=== PATIENT | female | born 1935 ===

== ENCOUNTER 2016-06-22 15:51 | Inpatient (IN) | payer MEDICARE, MEDICAID ==
[~2016-06-22] VITALS: Ht 152.4 cm; Wt 37.6 kg
--- NOTE | 2016-06-22 16:03 | NUR ---
[facility] CALLED, IVONNE TORRES WILL BE COMING TO EVAL PT.
[2016-06-22] MEDS ORDERED: GLIM2TAB2 PO (16:04)
[2016-06-22] MEDS ORDERED: BRIM5DRO3 OP (16:04)
[2016-06-22] MEDS ORDERED: BIMA2.5D5 OP (16:04)
[2016-06-22] MEDS ORDERED: AMYL1CAP56 PO (16:04)
[2016-06-22] MEDS ORDERED: TRIA0.252 PO (16:04)
[2016-06-22] MEDS ORDERED: TIMO1DRO2 OP (16:04)
[2016-06-22] MEDS ORDERED: LOSA100T3 PO (16:04)
[2016-06-22] MEDS ORDERED: ASPI81TA31 PO (16:04)
--- NOTE | 2016-06-22 16:27 | NUR ---
FAMILY AT THE BEDSIDE, PT RESTING W/ BOTH EYES CLOSED.
--- NOTE | 2016-06-22 16:52 | NUR ---
IVONNE TORRES FROM [facility] AT THE BEDSIDE FOR PSYCH EVAL. FAMILY PROVIDING INFO.
[2016-06-22 18:00] VITALS: BP 160/89
[2016-06-22] MEDS ORDERED: MAGNESIUM HYDROXIDE 30 ML LIQUID UDC PO PRN (18:00)
[2016-06-22] MEDS ORDERED: ACETAMINOPHEN 325 MG TABLET PO PRN (18:00)
[2016-06-22] MEDS ORDERED: LORAZEPAM 0.5 MG TABLET PO PRN (18:00)
[2016-06-22] MEDS ORDERED: MAG HYDROX/AL HYDROX/SIMETH 30 ML LIQUID UDC PO PRN (18:00)
--- NOTE | 2016-06-22 19:21 | NUR ---
1730 ADMIT TO [facility], PLACED ON 5150 FOR DTS AND GRAVELY DISABLED. PATIENT INGESTED NAILPOLISHED. PATIENT ALERT AND OX2, SPEAK VIETAMISE AND LITTLE YI. PATIENT CALM AND COOPERATIVE. RESPIRATION EVEN AND UNLABORED. DENIES PAIN. ADMISSION CARE DONE. DR. GODOY AND [facility] DOCTOR NOTIFIED TO RECONCILE MEDICATIONS.
[2016-06-22 19:45] VITALS: BP 124/70
[2016-06-22] MEDS: TEMAZEPAM 7.5 MG CAPSULE PO PRN (20:09)
[2016-06-23 07:06] LABS: BASOPHILS % (AUTO) 0.4 % (0.0-2.0); EOSINOPHILS # (AUTO) 0.2 K/uL (0.0-0.7); EOSINOPHILS % (AUTO) 1.8 % (0.0-7.0); HEMATOCRIT 34.9 % (37.0-47.0); HEMOGLOBIN 11.6 g/dL (12.0-16.0); LYMPHOCYTES # (AUTO) 2.9 K/uL (0.8-4.8); LYMPHOCYTES % (AUTO) 27.9 % (20.5-51.5); MEAN CORPUSCULAR HEMOGLOBIN 31.1 uug (27.0-31.0); MEAN CORPUSCULAR HGB CONC 33 g/dL (32.0-37.0); MEAN CORPUSCULAR VOLUME 93.4 fL (81.0-99.0); MONOCYTES # (AUTO) 0.6 K/uL (0.1-1.30); MONOCYTES % (AUTO) 6.2 % (0.0-11.0); NEUTROPHILS # (AUTO) 6.7 K/uL (1.8-8.9); NEUTROPHILS % (AUTO) 63.7 % (38.5-71.5); PLATELET COUNT (AUTO) 520 K/uL (150-450); RED BLOOD CELL COUNT(AUTO) 3.73 MIL/uL (4.20-5.40); RED CELL DISTRIBUTION WIDTH 14.1 % (11.5-14.5); WHITE BLOOD COUNT (AUTO) 10.4 K/uL (4.0-11.2)
[2016-06-23 07:30] VITALS: BP 124/64
[2016-06-23 07:33] LABS: ALBUMIN 3.6 g/dL (3.4-5.0); BILIRUBIN,TOTAL 0.5 mg/dL (0.2-1.0); CALCIUM 9.6 mg/dL (8.5-10.1); CREATININE 1.1 mg/dL (0.6-1.3); MAGNESIUM 2.1 mg/dL (1.8-2.4); POTASSIUM 4.2 mmol/L (3.5-5.1); TOTAL PROTEIN, SERUM 7.3 g/dL (6.4-8.2)
[2016-06-23 07:35] LABS: THYROID STIMULATING HORMONE 2.369 mIU/mL (0.358-3.740)
[2016-06-23] MEDS: LIPASE/PROTEASE/AMYLASE 1 CAP CAPSULE.DR PO SCH ×2 (08:48→17:52)
[2016-06-23] MEDS: GLIMEPIRIDE 2 MG TABLET PO SCH ×2 (08:49→17:52)
[2016-06-23] MEDS: ASPIRIN 81 MG TAB.CHEW PO SCH (08:49)
[2016-06-23] MEDS: LOSARTAN POTASSIUM 50 MG TABLET PO SCH (08:52)
[2016-06-23] MEDS ORDERED: [UNRECOGNIZED DRUG - OTHER] OP SCH (09:00)
[2016-06-23] MEDS ORDERED: BRIMONIDINE-P 0.1% OPHTH DROP 5 ML DROPS OP SCH (09:00)
[2016-06-23] MEDS ORDERED: TIMOLOL OP SCH (09:00)
[2016-06-23] MEDS ORDERED: BIMATOPROST 0.01% OPHT DROP 2.5 ML BOTTLE OP SCH (09:00)
[2016-06-23] MEDS: TIMOLOL MALEATE 0.5% OPHT DROP 5 ML BOTTLE EACHEYE SCH (11:04)
[2016-06-23] MEDS: BRIMONIDINE-P 0.1% OPHTH DROP 5 ML DROPS EACHEYE SCH (11:05)
--- NOTE | 2016-06-23 14:09 | NUR ---
Initial discharge instructions:Patient resides at home with her son and his family[[id number],[address];([phone]].Per family,they would like the pt to be placed at a SNF for shor-term.SW will speak with pt,family,and MD regarding appropriate discharge plans.SW will form a safe and proper discharge.
[2016-06-23 16:00] VITALS: BP 121/72
[2016-06-23] MEDS: MIRTAZAPINE 15 MG TABLET PO SCH (20:44)
[2016-06-23] MEDS: ARIPIPRAZOLE 5 MG TABLET PO SCH (20:44)
[2016-06-23] MEDS: LATANOPROST OPHT DROP 2.5 ML BOTTLE EACHEYE SCH (20:54)
[2016-06-23 21:13] VITALS: BP 119/61
--- NOTE | 2016-06-23 22:00 | NUR ---
received to care, up in troy chair, pleasant, but anxious, upon approach. compliant with medications, and staff direction. assisted to bed. as of 2200, she remains awake. no distress noted, will continue to monitor closely.
[2016-06-23] MEDS: TEMAZEPAM 7.5 MG CAPSULE PO PRN (22:51)
--- NOTE | 2016-06-23 22:51 | NUR ---
PRN restoril given for insomnia
--- NOTE | 2016-06-23 23:30 | NUR ---
appears to be asleep. no distress noted.
[2016-06-24] MEDS: CLONAZEPAM 0.5 MG TABLET PO PRN (01:42)
--- NOTE | 2016-06-24 01:42 | NUR ---
PRN klonopin given for anxiety.
--- NOTE | 2016-06-24 06:00 | NUR ---
slept 3 hours
[2016-06-24 08:00] VITALS: BP 123/55
[2016-06-24] MEDS: ASPIRIN 81 MG TAB.CHEW PO SCH (08:25)
[2016-06-24] MEDS: GLIMEPIRIDE 2 MG TABLET PO SCH ×2 (08:25→17:36)
[2016-06-24] MEDS: LIPASE/PROTEASE/AMYLASE 1 CAP CAPSULE.DR PO SCH ×2 (08:25→17:36)
[2016-06-24] MEDS: LOSARTAN POTASSIUM 50 MG TABLET PO SCH (08:26)
[2016-06-24] MEDS: TIMOLOL MALEATE 0.5% OPHT DROP 5 ML BOTTLE EACHEYE SCH (08:27)
[2016-06-24] MEDS: BRIMONIDINE-P 0.1% OPHTH DROP 5 ML DROPS EACHEYE SCH (08:27)
[2016-06-24 16:00] VITALS: BP 104/55
--- NOTE | 2016-06-24 16:40 | NUR ---
GPS/RN- Dunn catheter discontinue continue to monitor patient.
[2016-06-24] MEDS: ARIPIPRAZOLE 5 MG TABLET PO SCH (20:01)
[2016-06-24] MEDS: LATANOPROST OPHT DROP 2.5 ML BOTTLE EACHEYE SCH (20:01)
[2016-06-24] MEDS: MIRTAZAPINE 15 MG TABLET PO SCH (20:01)
[2016-06-24 20:08] VITALS: BP 117/71
[2016-06-25] MEDS: TEMAZEPAM 7.5 MG CAPSULE PO PRN ×2 (00:05→22:36)
--- NOTE | 2016-06-25 00:06 | NUR ---
GPS: PATIENT C/O INSOMNIA. RESTORIL 7.5 MG PO GIVEN.
--- NOTE | 2016-06-25 06:52 | NUR ---
GPS: REMAIN CALM AND COOPERATIVE. SLEPT 4 HRS AFTER GIVEN SLEEPING MEDS.SHOWERED THIS MORNING. CONTINUE MONITORING FOR SAFETY.
[2016-06-25 07:30] VITALS: BP 102/65
[2016-06-25] MEDS: LIPASE/PROTEASE/AMYLASE 1 CAP CAPSULE.DR PO SCH ×2 (08:24→17:18)
[2016-06-25] MEDS: TIMOLOL MALEATE 0.5% OPHT DROP 5 ML BOTTLE EACHEYE SCH (08:24)
[2016-06-25] MEDS: GLIMEPIRIDE 2 MG TABLET PO SCH ×2 (08:24→17:18)
[2016-06-25] MEDS: BRIMONIDINE-P 0.1% OPHTH DROP 5 ML DROPS EACHEYE SCH (08:24)
[2016-06-25] MEDS: ASPIRIN 81 MG TAB.CHEW PO SCH (08:24)
[2016-06-25] MEDS: LOSARTAN POTASSIUM 50 MG TABLET PO SCH (08:25)
[2016-06-25 16:00] VITALS: BP 111/60
[2016-06-25 20:00] VITALS: BP 112/68
[2016-06-25] MEDS: ARIPIPRAZOLE 5 MG TABLET PO SCH (20:52)
[2016-06-25] MEDS: MIRTAZAPINE 15 MG TABLET PO SCH (20:52)
[2016-06-25] MEDS: LATANOPROST OPHT DROP 2.5 ML BOTTLE EACHEYE SCH (20:57)
--- NOTE | 2016-06-25 22:36 | NUR ---
GPS: PATIENT C/O INSOMNIA. RESTORIL 7.5 MG PO GIVEN PER PATIENT REQUEST.
--- NOTE | 2016-06-25 23:36 | NUR ---
GPS: PATIENT SLEEPING EYE CLOSE. PRN EFFECTIVE FOR SLEEP.
--- NOTE | 2016-06-26 06:50 | NUR ---
GPS: REMAIN CALM AND COOPERATIVE WITH MEDS AND CARE. SLEPT 5 HRS AFTER GIVEN SLEEPING MEDS. ASSISTED WITH ADL'S. NO AGITATION NOTED. CONTINUE PLAN OF CARE.
[2016-06-26 07:30] VITALS: BP 102/72
[2016-06-26] MEDS: BRIMONIDINE-P 0.1% OPHTH DROP 5 ML DROPS EACHEYE SCH (08:53)
[2016-06-26] MEDS: GLIMEPIRIDE 2 MG TABLET PO SCH ×2 (08:53→17:17)
[2016-06-26] MEDS: LIPASE/PROTEASE/AMYLASE 1 CAP CAPSULE.DR PO SCH ×2 (08:53→17:17)
[2016-06-26] MEDS: LOSARTAN POTASSIUM 50 MG TABLET PO SCH (08:53)
[2016-06-26] MEDS: TIMOLOL MALEATE 0.5% OPHT DROP 5 ML BOTTLE EACHEYE SCH (08:53)
[2016-06-26] MEDS: ASPIRIN 81 MG TAB.CHEW PO SCH (08:53)
[2016-06-26 09:29] LABS: ALBUMIN 3.6 g/dL (3.4-5.0); BILIRUBIN,TOTAL 0.3 mg/dL (0.2-1.0); CALCIUM 9.3 mg/dL (8.5-10.1); CREATININE 0.9 mg/dL (0.6-1.3); POTASSIUM 3.9 mmol/L (3.5-5.1); TOTAL PROTEIN, SERUM 7.4 g/dL (6.4-8.2)
[2016-06-26 09:31] LABS: BASOPHILS # (AUTO) 0.1 K/uL (0.0-0.2); BASOPHILS % (AUTO) 0.6 % (0.0-2.0); EOSINOPHILS # (AUTO) 0.4 K/uL (0.0-0.7); EOSINOPHILS % (AUTO) 3.8 % (0.0-7.0); HEMATOCRIT 35.6 % (37.0-47.0); LYMPHOCYTES # (AUTO) 2.8 K/uL (0.8-4.8); LYMPHOCYTES % (AUTO) 25.3 % (20.5-51.5); MEAN CORPUSCULAR HEMOGLOBIN 31.1 uug (27.0-31.0); MEAN CORPUSCULAR HGB CONC 34 g/dL (32.0-37.0); MEAN CORPUSCULAR VOLUME 92.3 fL (81.0-99.0); MONOCYTES # (AUTO) 0.6 K/uL (0.1-1.30); MONOCYTES % (AUTO) 5.7 % (0.0-11.0); NEUTROPHILS # (AUTO) 7.2 K/uL (1.8-8.9); NEUTROPHILS % (AUTO) 64.6 % (38.5-71.5); PLATELET COUNT (AUTO) 471 K/uL (150-450); RED BLOOD CELL COUNT(AUTO) 3.85 MIL/uL (4.20-5.40); RED CELL DISTRIBUTION WIDTH 14.1 % (11.5-14.5); WHITE BLOOD COUNT (AUTO) 11.1 K/uL (4.0-11.2)
[2016-06-26 16:00] VITALS: BP 114/79
[2016-06-26] MEDS ORDERED: HYDROCORTISONE 2.5 % RECTAL CREAM 28.35 GM TUBE RC PRN (19:15)
[2016-06-26] MEDS: MIRTAZAPINE 15 MG TABLET PO SCH (20:20)
[2016-06-26] MEDS: ARIPIPRAZOLE 5 MG TABLET PO SCH (20:20)
[2016-06-26] MEDS: LATANOPROST OPHT DROP 2.5 ML BOTTLE EACHEYE SCH (20:21)
[2016-06-26 21:48] VITALS: BP 133/76
[2016-06-26] MEDS: TEMAZEPAM 7.5 MG CAPSULE PO PRN (22:29)
[2016-06-27 07:30] VITALS: BP 116/65
[2016-06-27] MEDS: LIPASE/PROTEASE/AMYLASE 1 CAP CAPSULE.DR PO SCH ×2 (08:34→17:04)
[2016-06-27] MEDS: ASPIRIN 81 MG TAB.CHEW PO SCH (08:34)
[2016-06-27] MEDS: GLIMEPIRIDE 2 MG TABLET PO SCH ×2 (08:34→17:04)
[2016-06-27] MEDS: LOSARTAN POTASSIUM 50 MG TABLET PO SCH (08:34)
[2016-06-27] MEDS: TIMOLOL MALEATE 0.5% OPHT DROP 5 ML BOTTLE EACHEYE SCH ×2 (08:35→16:27)
[2016-06-27] MEDS: BRIMONIDINE-P 0.1% OPHTH DROP 5 ML DROPS EACHEYE SCH ×2 (08:35→16:27)
[2016-06-27 15:22] VITALS: BP 104/50
[2016-06-27] MEDS: LATANOPROST OPHT DROP 2.5 ML BOTTLE EACHEYE SCH (20:02)
[2016-06-27] MEDS: MIRTAZAPINE 15 MG TABLET PO SCH (20:03)
[2016-06-27] MEDS: ARIPIPRAZOLE 5 MG TABLET PO SCH (20:03)
[2016-06-27] MEDS ORDERED: CYCL30DR OP (20:04)
[2016-06-27 20:20] VITALS: BP 121/65
[2016-06-27] MEDS: PATIENT MAY USE OWN MED- MD OK EACHEYE SCH (20:59)
[2016-06-28] MEDS: TEMAZEPAM 7.5 MG CAPSULE PO PRN (00:37)
[2016-06-28 07:30] VITALS: BP 106/50
[2016-06-28] MEDS: LOSARTAN POTASSIUM 50 MG TABLET PO SCH (07:51)
[2016-06-28] MEDS: LIPASE/PROTEASE/AMYLASE 1 CAP CAPSULE.DR PO SCH ×2 (08:23→18:03)
[2016-06-28] MEDS: ASPIRIN 81 MG TAB.CHEW PO SCH (08:23)
[2016-06-28] MEDS: GLIMEPIRIDE 2 MG TABLET PO SCH ×2 (08:23→18:03)
[2016-06-28] MEDS: TIMOLOL MALEATE 0.5% OPHT DROP 5 ML BOTTLE EACHEYE SCH ×2 (09:34→18:03)
[2016-06-28] MEDS: PATIENT MAY USE OWN MED- MD OK EACHEYE SCH ×2 (09:34→20:26)
[2016-06-28] MEDS: BRIMONIDINE-P 0.1% OPHTH DROP 5 ML DROPS EACHEYE SCH ×2 (09:34→18:03)
[2016-06-28 10:45] VITALS: BP 137/81
[2016-06-28 15:37] VITALS: BP 122/50
[2016-06-28 20:00] VITALS: BP 103/61
[2016-06-28] MEDS: ARIPIPRAZOLE 5 MG TABLET PO SCH (20:26)
[2016-06-28] MEDS: MIRTAZAPINE 15 MG TABLET PO SCH (20:26)
[2016-06-28] MEDS: LATANOPROST OPHT DROP 2.5 ML BOTTLE EACHEYE SCH (20:26)
[2016-06-29 07:30] VITALS: BP 111/54
[2016-06-29] MEDS: GLIMEPIRIDE 2 MG TABLET PO SCH ×2 (08:42→17:31)
[2016-06-29] MEDS: ASPIRIN 81 MG TAB.CHEW PO SCH (08:42)
[2016-06-29] MEDS: TIMOLOL MALEATE 0.5% OPHT DROP 5 ML BOTTLE EACHEYE SCH ×2 (08:43→17:32)
[2016-06-29] MEDS: LIPASE/PROTEASE/AMYLASE 1 CAP CAPSULE.DR PO SCH ×2 (08:43→17:31)
[2016-06-29] MEDS: BRIMONIDINE-P 0.1% OPHTH DROP 5 ML DROPS EACHEYE SCH ×2 (08:43→17:32)
[2016-06-29] MEDS: LOSARTAN POTASSIUM 50 MG TABLET PO SCH (08:44)
--- NOTE | 2016-06-29 10:25 | NUR ---
DC Note: The Patient will be discharged today to [facility] [[address], [place]; ] via ambulance at 12:00 pm. Please schedule an ambulance for the patient. Spoke with patient's son, Rivera [phone] who is aware and agreeable with discharge plans. Spoke with Ward at the facility who stated they would accept the patient today. Patient will follow up with (Psychiatrist) and (Trauma Counsellor) at the facility.
[2016-06-29] MEDS: PATIENT MAY USE OWN MED- MD OK EACHEYE SCH (12:12)
[2016-06-29] MEDS: CLONAZEPAM 0.5 MG TABLET PO PRN (14:12)
--- NOTE | 2016-06-29 15:04 | NUR ---
WEEKLY MEETING: TOLERATING CURRENT DIET(REGULAR),PO INTAKE FLUCTUATES,RANGING BETWEEN 50-100% OF MEALS,PT IS RECEIVING MIGHTY SHAKE ONCE(200 KCAL, 7 GM PROTEIN). LABS REVIEWED, HGA1C6.5,GLUCOSE 131 WEIGHT DISCREPANCY NOTICED 10LB WT GAIN IN 5 DAYS,NURSING/STARBUCKS CLERK RECHECK WEIGHT,BMI 16.2-UNDERWEIGHT NUTRITION DIAGNOSIS: SUBOPTIMAL PO INTAKE RELATED TO ALTERED MENTAL STATUS EVIDENCED BY PO<75% OF MEALS INTERVENTION; REC BOOST GLUCOSE ONCE,REC CONTINUE WITH MIGHTY SHAKE ONCE ALTERED NUTRITION LAB VALUES RELATED TO DM EVIDENCED B ABOVE LABS INTERVENTION; IF BLOOD SUGAR CONTINUE TO ELEVATE REC CHANGE DIET TO CCHO 45 GM MONITOR:PO INTAKE,WT,NEW LABS IMPROVE IN PO INTAKE NO SIGNIFICANT WT CHANGES DURING HOSPITAL STAY,RECHECK WEIGHT NO N/V/D Addendum: 06/29/16 at [address] Amended: Links added.
[2016-06-29 16:00] VITALS: BP 115/62
--- NOTE | 2016-06-29 18:37 | NUR ---
1200 Caleed report to Yomaira Sandoval LVN regarding patient will be discharged this afternoon ,at 1630 to their facility. Nurse informed about patient medically and mentally stable, denies SI/HI, no hallucinations/ no delusions noted. Also, informed about patient diagnosis, medications to cntinue upon discharged as per Md, nurse verbalized understanding.1830 Picked up by ambulance and transported to the facility mentioned above, stable condition.
== END 2016-06-29 18:30 | DRG 885 ==
LOC: ER 16:05 → GPS 17:34
PROVIDERS: ADMIT Psychiatry & Neurology Psychiatry; ATTEND Internal Medicine
DX: F33.3 Major depressive disorder, recurrent, severe with psychotic symptoms (principal); N17.0 Acute kidney failure with tubular necrosis; K85.90 Acute pancreatitis without necrosis or infection, unspecified; K85.80 Other acute pancreatitis without necrosis or infection; Z68.1 Body mass index [BMI] 19.9 or less, adult; E44.1 Mild protein-calorie malnutrition; I10 Essential (primary) hypertension; E78.5 Hyperlipidemia, unspecified; D64.9 Anemia, unspecified; Z79.84 Long term (current) use of oral hypoglycemic drugs; Z91.5 Personal history of self-harm; E11.9 Type 2 diabetes mellitus without complications; R62.7 Adult failure to thrive
CPT/HCPCS: 36415; 82378; 83690; 83735; 84100; 84443; 85025; 97001; 97116; 97530; A4663

== ENCOUNTER 2022-05-26 15:21 | Inpatient (IN) | payer MEDICARE, OTHER ==
[~2022-05-26] VITALS: Ht 152.4 cm; Wt 46.3 kg
[~2022-05-26 15:21] MED LIST: AMYL1CAP56 PO; ASPI81TA31 PO; BIMA2.5D5 OP; BRIM5DRO3 OP; CYCL30DR OP; GLIM2TAB31 PO; LOSA100T3 PO; TIMO1DRO2 OP
[2022-05-26 16:06] LABS: HEMATOCRIT 34.3 % (31.2-41.9); MEAN CORPUSCULAR VOLUME 93.5 fL (75.5-95.3); PLATELET COUNT (AUTO) 404 K/uL (179-408)
--- NOTE | 2022-05-26 16:09 | NUR ---
86 years old female biba c/o abdominal pain denies nausea., vomiting, diarrhea constipation.
[2022-05-26 16:16] LABS: CARBON DIOXIDE 29 mmol/L (21-32); CHLORIDE 106 mmol/L (98-107); CREATININE 1.4 mg/dL (0.6-1.3); GLUCOSE 167 mg/dL (74-106); POTASSIUM 4.2 mmol/L (3.5-5.1); UREA NITROGEN, BLOOD 25 mg/dL (7-18)
[2022-05-26 16:17] LABS: LIPASE 123 U/L (73-393)
[2022-05-26 16:24] LABS: ALANINE AMINOTRANSFERASE 16 U/L (14-59); ALKALINE PHOSPHATASE 74 U/L (50-136); ASPARTATE AMINOTRANSFERASE 18 U/L (15-37); BILIRUBIN,DIRECT 0.1 mg/dL (0.0-0.2); BILIRUBIN,TOTAL 0.2 mg/dL (0.2-1.0); TOTAL PROTEIN, SERUM 7.2 g/dL (6.4-8.2)
[2022-05-26 17:04] LABS: *BILIRUBIN,URIN NEGATIVE (NEGATIVE); *BLOOD, URINE NEGATIVE (NEGATIVE); *CLARITY,URINE CLEAR (CLEAR); *COLOR,URINE YELLOW (YELLOW); *KETONES,URINE NEGATIVE (NEGATIVE); *UROBILINOGEN,URINE 0.2 E.U./dl (NORMAL); LEUKOCYTE ESTERASE ,URINE NEGATIVE (NEGATIVE); NITRITE, URINE NEGATIVE (NEGATIVE); UGLUCOSE TRACE (NEGATIVE)
[2022-05-26] MEDS ORDERED: PANT40TA49 MT (18:10)
[2022-05-26] MEDS ORDERED: FAMO20TA8 MT (18:10)
[2022-05-26] MEDS ORDERED: ATOR20TA (18:10)
[2022-05-26] MEDS ORDERED: INSU100V11 SQ (18:10)
[2022-05-26] MEDS ORDERED: MIRT-93 MT (18:10)
[2022-05-26] MEDS ORDERED: MEMA5TAB42 MT (18:10)
--- NOTE | 2022-05-26 18:48 | NUR ---
patient yelling screaming constantly po fluid given tolerated well vss awaiting for admit bed.
[2022-05-26] MEDS ORDERED: ONDANSETRON 4 MG/2 ML VIAL IV PRN (19:30)
[2022-05-26] MEDS ORDERED: MAGNESIUM HYDROXIDE 30 ML LIQUID UDC PO PRN (19:30)
[2022-05-26] MEDS ORDERED: DEXTROSE 50% 50 ML DISP.SYRIN IV PRN (19:30)
[2022-05-26] MEDS ORDERED: INSULIN REGULAR, HUMAN 300 UNITS/3 ML VIAL SQ PRN (19:30)
[2022-05-26] MEDS ORDERED: REMEDY ESSENTIAL ZINC PASTE 113 GM TP PRN (19:30)
--- NOTE | 2022-05-26 20:13 | NUR ---
report given to Steven DORMAN
--- NOTE | 2022-05-26 20:56 | NUR ---
Pt. admitted to m/s room 308 , under care of Dr. Pearce Belongs List completed Steven RN aware of patient's arrival
[2022-05-26] MEDS: BLOOD SUGAR DIAGNOSTIC 1 EACH STRIP VI SCH (21:13)
[2022-05-26] MEDS: LOSARTAN POTASSIUM 50 MG TABLET PO SCH (21:42)
[2022-05-26] MEDS: IV NS 1000 ML 1,000 ML IV PRN (21:45)
[2022-05-26 21:46] VITALS: BP 147/68
--- NOTE | 2022-05-26 21:50 | NUR ---
Admitted patient in med surg floor under the care of Dr Pearce, patient alert 2 to 3, able to make needs know, with episode of yelling states she has abdominal pain, spoon feed with veg soup as requested, patient speak Pakistani but understand Puerto Rican and speak Puerto Rican also, kept comfortable,
[2022-05-26] MEDS: ACETAMINOPHEN 325 MG TABLET PO PRN (22:51)
--- NOTE | 2022-05-26 22:51 | NUR ---
Patient yelling and screaming for abdominal pain, notify Dr. Pearce, awaiting for response.
--- NOTE | 2022-05-27 00:30 | NUR ---
Patient has multiple episode of yelling/screaming notify [place] EXCH[employer] CONSULTANT with order.
[2022-05-27] MEDS: LORAZEPAM 2 MG/1 ML VIAL IV PRN ×2 (00:45→12:08)
[2022-05-27 03:47] VITALS: BP 115/55
--- NOTE | 2022-05-27 04:45 | NUR ---
Patient awake, sleep intermittently, no complain of pain at this time. Patient still with episode of yelling screaming, attend needs as much as possible, patient disrobe, removes diaper. Patient drank one diabetic ensure, drink water without difficulty, Patient behavior un-redirectable, kept clean dry and comfortable, offer food and fluids, Ativan 1mg IV earlier has some help reduced the behavior, cont to monitor.
[2022-05-27] MEDS: BLOOD SUGAR DIAGNOSTIC 1 EACH STRIP VI SCH ×4 (05:54→21:24)
[2022-05-27] MEDS: PANTOPRAZOLE SODIUM 40 MG TABLET.DR PO SCH (06:07)
[2022-05-27 06:52] LABS: HEMATOCRIT 34.2 % (31.2-41.9); MEAN CORPUSCULAR HEMOGLOBIN 30.8 uug (24.7-32.8); MEAN CORPUSCULAR VOLUME 94.3 fL (75.5-95.3); PLATELET COUNT (AUTO) 388 K/uL (179-408)
[2022-05-27 07:11] LABS: CREATININE 1.2 mg/dL (0.6-1.3); MAGNESIUM 2.5 mg/dL (1.8-2.4); PHOSPHOROUS 3.5 mg/dL (2.5-4.9)
[2022-05-27] MEDS ORDERED: LATANOPROST OPHT DROP 2.5 ML BOTTLE OP SCH ×2 (09:00→21:00)
[2022-05-27] MEDS ORDERED: BRIMONIDINE-P 0.1% OPHTH DROP 5 ML DROPS OP SCH ×2 (09:00)
[2022-05-27] MEDS: LOSARTAN POTASSIUM 50 MG TABLET PO SCH ×2 (09:00→20:30)
[2022-05-27] MEDS: MEMANTINE HCL 5 MG TABLET PO SCH (09:35)
[2022-05-27] MEDS: ASPIRIN 81 MG TAB.CHEW PO SCH (09:35)
[2022-05-27 11:16] VITALS: BP 105/48
[2022-05-27] MEDS: ACETAMINOPHEN 325 MG TABLET PO PRN (12:00)
[2022-05-27] MEDS: DIVALPROEX SPRINKLE 125 MG CAP.SPRINK PO SCH ×2 (13:45→20:27)
[2022-05-27] MEDS: INSULIN REGULAR, HUMAN 300 UNIT/3 ML VIAL SQ PRN (13:54)
[2022-05-27] MEDS: IV NS 1000 ML 1,000 ML IV PRN (15:02)
[2022-05-27 15:08] VITALS: BP 155/74
[2022-05-27] MEDS: MIRTAZAPINE 15 MG TABLET PO SCH (17:47)
[2022-05-27 20:05] VITALS: BP 132/88
[2022-05-27] MEDS: OLANZAPINE ZYDIS 5 MG TAB.RAPDIS PO SCH (20:27)
[2022-05-28] MEDS: ACETAMINOPHEN 325 MG TABLET PO PRN ×2 (01:28→09:03)
[2022-05-28 04:15] VITALS: BP 144/65
[2022-05-28] MEDS: IV NS 1000 ML 1,000 ML IV PRN (04:25)
[2022-05-28 05:40] LABS: HEMATOCRIT 34.9 % (31.2-41.9); MEAN CORPUSCULAR HEMOGLOBIN 30.6 uug (24.7-32.8); MEAN CORPUSCULAR VOLUME 93.1 fL (75.5-95.3); PLATELET COUNT (AUTO) 441 K/uL (179-408)
[2022-05-28 05:50] LABS: CARBON DIOXIDE 23 mmol/L (21-32); CHLORIDE 108 mmol/L (98-107); CREATININE 1.5 mg/dL (0.6-1.3); GLUCOSE 174 mg/dL (74-106); POTASSIUM 4.2 mmol/L (3.5-5.1); UREA NITROGEN, BLOOD 20 mg/dL (7-18)
[2022-05-28] MEDS: PANTOPRAZOLE SODIUM 40 MG TABLET.DR PO SCH (06:12)
[2022-05-28] MEDS: BLOOD SUGAR DIAGNOSTIC 1 EACH STRIP VI SCH ×4 (06:35→20:45)
--- NOTE | 2022-05-28 06:54 | NUR ---
Patient slept intermittently, with frequent episode of yelling and screaming. Bilateral soft wrist restraint in placed, care provided. No c/o pain. In no acute distress. Needs assessed and attended to.
[2022-05-28] MEDS: INSULIN REGULAR, HUMAN 300 UNIT/3 ML VIAL SQ PRN (08:26)
[2022-05-28] MEDS: ASPIRIN 81 MG TAB.CHEW PO SCH (09:03)
--- NOTE | 2022-05-28 09:03 | NUR ---
NOTED PATIENT TO BE SOMEWHAT RESTLESS WITH FACIAL GRIMACING UNABLE TO REDIRECT MEDICATED WITH TYLENOL FOR COMFORT MADE COMFORTABLE WILL CONTINUE TO OBSERVE.
[2022-05-28] MEDS: LOSARTAN POTASSIUM 50 MG TABLET PO SCH ×2 (09:04→20:55)
[2022-05-28] MEDS: DIVALPROEX SPRINKLE 125 MG CAP.SPRINK PO SCH ×2 (09:09→21:52)
[2022-05-28] MEDS: MEMANTINE HCL 5 MG TABLET PO SCH (09:15)
--- NOTE | 2022-05-28 09:30 | NUR ---
PATIENT SEEN BY DR RODRIGUEZ WITH NEW ORDERS AND NOTED IVF STOPPED AT THIS TIME PATIENT IS AWAKE MAKES GOOD EYE CONTACT BUT SHE IS CONFUSED AND DISORIENTED ALL NEEDS ANTICIPATED AND SATISFIED ON ROOM AIR WITH NO SHORTNESS OF BREATH REPOSITIONED FOR COMFORT FIDEL WRIST RESTRAINTS IN TACT FOR SAFETY RELEASED FOR CIRCULATION AND REAPPLIED.MADE COMFORTABLE WILL CONTINUE TO OBSERVE.
[2022-05-28 11:48] VITALS: BP 124/66
[2022-05-28 16:10] VITALS: BP 118/58
[2022-05-28] MEDS: GLUCERNA SHAKE 237 ML CAN PO SCH (16:33)
[2022-05-28] MEDS: MIRTAZAPINE 15 MG TABLET PO SCH (17:38)
--- NOTE | 2022-05-28 18:00 | NUR ---
PATIENT IS RESTING IN BED SLEEPING ON AND OFF NOT IN DISTRESS AT THIS TIME REMAIN ON ATB ORDERED WITH NO ADVERSE OR ALLERGIC REACTIONS AT THIS TIME WILL CONTINUE TO OBSERVE.
[2022-05-28 20:12] VITALS: BP 111/51
[2022-05-28] MEDS: REMEDY ESSENTIAL ZINC PASTE 113 GM TP SCH (20:46)
[2022-05-28] MEDS: OLANZAPINE ZYDIS 5 MG TAB.RAPDIS PO SCH (21:52)
[2022-05-29 04:12] VITALS: BP 149/76
--- NOTE | 2022-05-29 05:32 | NUR ---
Slept well the whole night, easy to arouse, denies pain. No noted acute distress. IV access to RFA intact and patent. Offered fluids. Needs attended.
[2022-05-29 06:05] LABS: HEMATOCRIT 36.3 % (31.2-41.9); MEAN CORPUSCULAR HEMOGLOBIN 30.7 uug (24.7-32.8); MEAN CORPUSCULAR VOLUME 94.8 fL (75.5-95.3); PLATELET COUNT (AUTO) 419 K/uL (179-408)
[2022-05-29] MEDS: PANTOPRAZOLE SODIUM 40 MG TABLET.DR PO SCH (06:08)
[2022-05-29 06:30] LABS: CREATININE 1.3 mg/dL (0.6-1.3); MAGNESIUM 2.6 mg/dL (1.8-2.4); PHOSPHOROUS 2.9 mg/dL (2.5-4.9); POTASSIUM 3.8 mmol/L (3.5-5.1)
[2022-05-29] MEDS: BLOOD SUGAR DIAGNOSTIC 1 EACH STRIP VI SCH ×2 (06:49→11:30)
[2022-05-29] MEDS: GLUCERNA SHAKE 237 ML CAN PO SCH ×2 (08:00→12:00)
--- NOTE | 2022-05-29 09:50 | NUR ---
PATIENT REFUSED BREAKFAST. DRUNK 75% OF GLUCERNA. BHARATHI .DANDY, BSN
[2022-05-29] MEDS: LOSARTAN POTASSIUM 50 MG TABLET PO SCH (09:53)
[2022-05-29] MEDS: MEMANTINE HCL 5 MG TABLET PO SCH (09:53)
[2022-05-29] MEDS: ASPIRIN 81 MG TAB.CHEW PO SCH (09:53)
[2022-05-29] MEDS: REMEDY ESSENTIAL ZINC PASTE 113 GM TP SCH (09:53)
[2022-05-29] MEDS: DIVALPROEX SPRINKLE 125 MG CAP.SPRINK PO SCH (09:53)
--- NOTE | 2022-05-29 11:35 | NUR ---
ROTARY FILTER OPERATOR CALLED [facility] AND GAVE REPORT. NESHA CHAUDHRY TOOK REPORT ON PATIENT AND MADE AWARE OF OVERNIGHT CASHIER TIME 1200. BILLET INSPECTOR UPDATED FAMILY. DANDY HO
[2022-05-29 12:00] VITALS: BP 110/51
--- NOTE | 2022-05-29 13:57 | NUR ---
PATIENT REFUSED LUNC. 50% OF GLUCERNA CONSUMED. BHARATHI Murillo RN, BSN
[2022-05-29 16:00] VITALS: BP 113/52
--- NOTE | 2022-05-29 16:10 | NUR ---
PATIENT DEPARTED ON STRETCHER @1610. ALERT X1 WITH CONFUSION. PATIENT ON ROOM AIR. DENIES PAIN. ACCOMPANIED BY ALL NECESSARY DOCUMENTS. IV TO LFA REMOVED WITH MINIMAL BLEEDING. REPORT GIVEN TO upholstery department supervisor. FAMILY UPDATED. NO PERSONAL BELONGINGS NOTED. FAMILY TO MAKE FOLLOW UP APPOINTMENTS. NO CONCERNS NOTED. -BHARATHI Murillo RN, BSN
== END 2022-05-29 16:30 | DRG 73 ==
LOC: ER 15:21 → MEDSURG3 18:30
PROVIDERS: ADMIT Internal Medicine; ATTEND Internal Medicine
DX: E11.43 Type 2 diabetes mellitus with diabetic autonomic (poly)neuropathy (principal); E43 Unspecified severe protein-calorie malnutrition; N17.0 Acute kidney failure with tubular necrosis; G93.41 Metabolic encephalopathy; D68.59 Other primary thrombophilia; R64 Cachexia; Z68.1 Body mass index [BMI] 19.9 or less, adult; F03.94 Unspecified dementia, unspecified severity, with anxiety; F03.93 Unspecified dementia, unspecified severity, with mood disturbance; Z74.09 Other reduced mobility; E88.09 Other disorders of plasma-protein metabolism, not elsewhere classified; E86.0 Dehydration; E78.5 Hyperlipidemia, unspecified; G62.9 Polyneuropathy, unspecified; I10 Essential (primary) hypertension; K31.84 Gastroparesis; Z79.82 Long term (current) use of aspirin; Z79.84 Long term (current) use of oral hypoglycemic drugs; Z90.710 Acquired absence of both cervix and uterus; Z20.822 Contact with and (suspected) exposure to COVID-19; E11.42 Type 2 diabetes mellitus with diabetic polyneuropathy; F41.9 Anxiety disorder, unspecified; F32.A Depression, unspecified; F39 Unspecified mood [affective] disorder; F29 Unspecified psychosis not due to a substance or known physiological condition; K29.70 Gastritis, unspecified, without bleeding; R62.7 Adult failure to thrive
CPT/HCPCS: 36415; 71045; 83605; 83690; 83735; 84100; 84484; 85025; 93005; A4663; G0378; J1815; J2060; J7040